=== PATIENT | female | born 1995 | race Hispanic/Latino ===

== ENCOUNTER 2019-06-25 23:57 | Emergency (ER) | payer MEDICAID ==
[2019-06-26 00:03] VITALS: BP 127/85
[2019-06-26] MEDS ORDERED: TETANUS,DIPH,PERTUSS(ACELL) VACCINE 0.5 ML SYRINGE IM ONE (01:05)
--- NOTE | 2019-06-26 01:13 | Emergency Department Report ---
Abscess Boil HPI - HPI Chief Complaint: Wound/Laceration Stated Complaint: POSS SPIDER BITE LT THIGH Time Seen by Provider: 06/26/19 00:32 Duration: Today Location: Lower Extremity (left lateral thigh) Severity: Mild History: Yes Pain, Yes Insect Bite, No Fever, No Purulent Drainage, No Numbness, No Foreign Body, No Previous History HPI: This is a 24-year-old female that presents emergency room with a painful spider bite to the left lateral thigh. Patient states she was watching television on her couch with her spouse when she felt burning and pruritus to the left lateral thigh. Patient states when she looked down she saw a spider which appeared to be a baby brown recluse. She marked the area and came to the ER. Home Medications: Previous Rx's Medication Instructions Recorded Last Taken Type Clindamycin [Clindamycin CAP] 300 mg PO Q8H #21 cap 06/26/19 Unknown Rx Allergies/Adverse Reactions: Allergies Allergy/AdvReac Type Severity Reaction Status Date / Time amoxicillin Allergy Hives Verified 06/26/19 00:06 ED Review of Systems ROS: Stated complaint: POSS SPIDER BITE LT THIGH Other details as noted in HPI Constitutional: denies: chills, fever Respiratory: denies: cough, shortness of breath, wheezing Cardiovascular: denies: chest pain, palpitations Gastrointestinal: denies: abdominal pain, nausea, diarrhea Musculoskeletal: denies: back pain, joint swelling, arthralgia Skin: lesions (Painful abscess to left lateral thigh), pruritus. denies: rash Neurological: denies: headache, weakness, paresthesias Psychiatric: denies: anxiety, depression ED Past Medical Hx - Past Medical History Previous Medical History?: No - Surgical History Past Surgical History?: No - Social History Smoking Status: Current Every Day Smoker Substance Use Type: None - Medications Home Medications: Home Medications Medication Instructions Recorded Confirmed Last Taken Type Clindamycin [Clindamycin CAP] 300 mg PO Q8H #21 cap 06/26/19 Unknown Rx ED Abscess Boil Physical Exam - Exam General: Vital signs noted. No distress. Alert and acting appropriately. Front/Back of Body, Lg (Color): 1 - 1/2 cm erythematous annular nonfluctuant nodule to the left lateral mid thigh, TTP, surrounding cellulitis Size: 1 cm (1/2 centimeter) Exam: Yes Tenderness, Yes Surrounding Cellulites/Erythema, Yes Normal Neurologic Exam, Yes Normal Circulation, No Fluctuance, No Lymphangitis, No Crepitation, No Heart Murmur ED Course Vital Signs 06/26/19 00:02 Temperature 97.8 F Pulse Rate 111 H Respiratory 18 Rate Blood Pressure 127/85 O2 Sat by Pulse 99 Oximetry Critical care attestation.: If time is entered above; I have spent that time in minutes in the direct care of this critically ill patient, excluding procedure time. ED Medical Decision Making - Medical Decision Making This is a 24 y.o. female that presents with a painful abscess to left lateral thigh. Patient is stable. Patient marked area prior to arrival. Abscess is 1/2 cm annular erythematous non-fluctuate, surrounding cellulitis, tender to palpation. No acute signs of distress noted. I&D not indicated at this time. Patient given Boostrix vaccine. Discussed plan to start clindamycin and ibuprofen with patient. Patient instructed to monitor his marked edges for spread of infection. Follow-up with primary care doctor or return to the emergency room with worsening symptoms. Patient discharged home stable. ED Disposition Clinical Impression: Abscess of left thigh Spider bite Qualifiers: Encounter type: initial encounter Injury intent: accidental or unintentional Qualified Code(s): T63.301A - Toxic effect of unspecified spider venom, accidental (unintentional), initial encounter Disposition: - TO HOME OR SELFCARE Is pt being admited?: No Condition: Stable Instructions: Insect Bite or Sting (ED) Additional Instructions: Monitor marked area for spread of infection. If you notice worsening symptoms follow-up with your primary care doctor or return to the emergency room. Prescriptions: Clindamycin [Clindamycin CAP] 300 mg PO Q8H #21 cap Referrals: [facility] [Outside] - 3-5 Days [facility] [Outside] - 3-5 Days [facility] [Outside] - 3-5 Days Forms: Work/School Release Form(ED) Time of Disposition: 01:26
== END 2019-06-26 01:30 | disposition home or self-care (01) ==
LOC: ED 23:57
DX: L02.416 Cutaneous abscess of left lower limb (principal); F17.200 Nicotine dependence, unspecified, uncomplicated; Z79.899 Other long term (current) drug therapy; Z88.1 Allergy status to other antibiotic agents; T63.301A Toxic effect of unspecified spider venom, accidental (unintentional), initial encounter; Y92.89 Other specified places as the place of occurrence of the external cause
CPT/HCPCS: 90471; 90715; 99282